=== PATIENT | female | born 1970 | race Caucasian/White ===

== ENCOUNTER → 2017-02-22 | Outpatient (CLI) | payer BC ==
[2014-05-27 11:00] VITALS: BP 138/76
[~2017-02-22] MED LIST: Oxycodone Hcl/Acetaminophen PO
--- NOTE | 2017-02-22 16:32 | KCIC ---
Bilateral digital screening mammograms: Reason for examination: Routine screening. Comparison is made to previous studies dated back to 07/12/2013. The skin and nipples show no abnormalities. No abnormal axillary lymph nodes are seen. The breast parenchyma shows scattered fibroglandular density. (Breast density: Category B.) There continues to be a nodular density anterior medially in the right breast seen best on CC view which is unchanged. There also continue to be small intramammary lymph nodes posterior laterally in the right breast. There are no new dominant masses, suspicious calcifications or architectural distortions. Impression: No evidence of malignancy. Recommend routine screening. BI-RADS Category 2: Benign. "Our facility is accredited by the [employer] Mammography [employer]." This patient's information has been entered into a reminder system for the patient to be notified with the results of her examination and a target date for the next mammogram. Electronically signed by: Ana Paula Ojeda MD (02/22/2017 4:28 PM) [id number]
== END | disposition home or self-care (01) ==
LOC: KCIC MAMMO 15:46
PROVIDERS: ATTEND Obstetrics & Gynecology
DX: Z12.31 Encounter for screening mammogram for malignant neoplasm of breast (principal)
CPT/HCPCS: G0202; 77067

== ENCOUNTER → 2018-05-11 | Outpatient (CLI) | payer BC ==
[2018-02-25 08:42] VITALS: BP 124/84
[~2018-05-11] MED LIST changes: +LEVO150T5 PO; +PHEN37.53 PO; +RANI150C PO; +TOPI50TA8 PO
--- NOTE | 2018-05-11 16:52 | KCIC ---
Bilateral digital screening mammograms: Reason for examination: Routine screening. Comparison is made to previous studies dated 02/22/2017 and 12/26/2015. Interpretation was made with the benefit of CAD. The skin and nipples show no abnormalities. No abnormal axillary lymph nodes are seen. The breast parenchyma shows scattered fibroglandular density. (Breast density: Category B.) There are tiny nodules consistent with intramammary lymph nodes at the 10:00 position posteriorly in the right breast which are stable. There are no new dominant masses, suspicious calcifications or architectural distortions. Impression: No evidence of malignancy. Recommend routine screening. BI-RADS Category 2: Benign. "Our facility is accredited by the [employer]amm[employer]." This patient's information has been entered into a reminder system for the patient to be notified with the results of her examination and a target date for the next mammogram. Electronically signed by: Ana Paula Ojeda MD (05/11/2018 4:49 PM) [id number]
== END | disposition home or self-care (01) ==
LOC: KCIC MAMMO 15:53
PROVIDERS: ATTEND Obstetrics & Gynecology
DX: Z12.31 Encounter for screening mammogram for malignant neoplasm of breast (principal)
CPT/HCPCS: 77067

== ENCOUNTER → 2018-10-13 | Outpatient (CLI) | payer BC ==
[2018-02-25 08:42] VITALS: BP 124/84
--- NOTE | 2018-10-13 11:06 | KCIC ---
MRI Cervical Spine Without Contrast History: Cervical radiculopathy, previous work injury, neck pain, loss of range of motion, right upper extremity numbness Technique: Multiplanar, multi sequential noncontrast MR imaging was performed of the cervical spine. Comparison: None Findings: Cervical vertebral body stature and AP alignment are maintained. Cervical cord caliber is within normal limits without focal signal abnormality. Intervertebral disc spaces are overall maintained. There is no significant marrow edema. There are somewhat prominent nodes of the visualized neck such as largest right level 2 node about 1.3 cm short axis dimension. C2-C3: Neural foramina and spinal canal are adequate. C3-C4: Neural foramina and spinal canal are adequate. C4-C5: Spinal canal and neural foramina are adequate. There is facet degenerative change greater on the right. C5-C6: There is facet degenerative change bilaterally. Neural foramina and spinal canal are adequate. C6-C7: Neural foramina and spinal canal are adequate. There is facet degenerative change greater on the right. C7-T1: Spinal canal and neural foramina are adequate. There is facet degenerative change bilaterally. Impression: 1. There is no cervical spinal stenosis or neural foramina compromise. There is multilevel facet degenerative change. 2. There are somewhat prominent nonspecific nodes of the visualized neck on the right, not fully evaluated. Clinical follow-up is advised. Electronically signed by: Kali Nielsen MD (10/13/2018 11:02 AM) [id number]
== END | disposition home or self-care (01) ==
LOC: KCIC MRI 09:52
PROVIDERS: ATTEND Family Medicine
DX: M47.22 Other spondylosis with radiculopathy, cervical region (principal)
CPT/HCPCS: 72141

== ENCOUNTER → 2018-11-22 | Outpatient (CLI) | payer BC ==
[2018-02-25 08:42] VITALS: BP 124/84
--- NOTE | 2018-11-22 15:08 | KCIC ---
NECK SOFT TISSUE History: Lymph nodes seen on cervical MRI, previous thyroidectomy Comparison: MRI cervical spine exam October 13, 2018 Findings: Multiple sonographic images of the neck are submitted. There are nonspecific nodes of the lateral neck. Largest node superiorly of the right measures about 2.6 x 0.4 x 1.1 cm, another node near mid neck level about 1.1 x 0.5 to 0.7 cm. Largest node of left neck superiorly measures about 2.4 x 0.5 x 1 cm. A node of the mid left neck measures about 1.7 x 0.5 x 0.8 cm. IMPRESSION: 1. There are nonspecific nodes of the bilateral neck although not considered significantly enlarged based on short axis dimensions. Electronically signed by: Kali Nielsen MD (11/22/2018 3:06 PM) [email or web address]
== END | disposition home or self-care (01) ==
LOC: KCIC US 13:04
PROVIDERS: ATTEND Family Medicine
DX: R59.9 Enlarged lymph nodes, unspecified (principal)
CPT/HCPCS: 76536

== ENCOUNTER → 2019-10-26 | Outpatient (CLI) | payer BC ==
[2018-02-25 08:42] VITALS: BP 124/84
--- NOTE | 2019-10-26 16:39 | RAD ---
CHEST PA LATERAL History: Shortness of breath, cough, symptoms for a week Comparison: None. Findings: 2 views of the chest are submitted. There is no dependent pleural fluid or pneumothorax. Pericardial cardiac silhouette is within normal limits. No lobar infiltrate is identified by radiographs. There are likely some small granulomas at the right lung base. Impression: 1. No lobar infiltrate is identified by radiographs. Electronically signed by: Kali Nielsen MD (10/26/2019 4:36 PM) [id number]
== END | disposition home or self-care (01) ==
LOC: RAD 15:40
PROVIDERS: ATTEND Family Medicine
DX: R05 Cough (principal); J84.10 Pulmonary fibrosis, unspecified
CPT/HCPCS: 71046

== ENCOUNTER → 2019-12-19 | Outpatient (CLI) | payer BC ==
[2018-02-25 08:42] VITALS: BP 124/84
--- NOTE | 2019-12-19 17:00 | KCIC ---
Bilateral digital screening mammograms: Reason for examination: Routine screening. Comparison is made to previous studies dated 05/11/2018 and 02/22/2017. Interpretation was made with the benefit of CAD. The skin and nipples show no abnormalities. No abnormal axillary lymph nodes are seen. The breast parenchyma shows scattered fibroglandular density. (Breast density: Category B.) There are small intramammary lymph nodes in the upper outer quadrant of the right breast. There also continues to be a small nodule at the 3:00 position anteriorly in the right breast. There are no new dominant masses, suspicious calcifications or architectural distortions. Impression: No evidence of malignancy. Recommend routine screening. BI-RADS Category 2: Benign. "Our facility is accredited by the [employer] Mammography [employer]." This patient's information has been entered into a reminder system for the patient to be notified with the results of her examination and a target date for the next mammogram. Electronically signed by: Ana Paula Ojeda MD (12/19/2019 4:57 PM) [id number]
== END | disposition home or self-care (01) ==
LOC: KCIC MAMMO 15:13
PROVIDERS: ATTEND Family Medicine
DX: Z12.31 Encounter for screening mammogram for malignant neoplasm of breast (principal)
CPT/HCPCS: 77067